=== PATIENT | male | born 1980 | race Caucasian/White ===

== ENCOUNTER 2023-12-03 14:28 | Emergency (ER) | payer BC ==
[2023-12-03] MEDS: Proparacaine 0.5% Ophth Soln 15 ML Bottle EYEBOTH STA (15:44)
== END 2023-12-03 16:44 | disposition home or self-care (01) ==
LOC: JD.ED 14:28
DX: H57.89 Other specified disorders of eye and adnexa (principal); F17.210 Nicotine dependence, cigarettes, uncomplicated; Z88.8 Allergy status to other drugs, medicaments and biological substances
CPT/HCPCS: 99282; 99283; J3490